=== PATIENT | male | born 1985 | race African-American/Black ===

== ENCOUNTER 2020-05-16 12:44 | Day surgery (SDCO) | payer OTHER ==
[2020-05-16 14:08] LABS: BASOPHIL 0.3 % (0-2); EOSINOPHIL 0.4 % (0-5); HCT 46.1 % (42.0-52.0); HGB 14.4 g/dl (13.2-18.0); MCH 25.3 pg (25.0-31.0); MCHC 31.2 g/dL (32.0-36.0); MONOCYTE 10.8 % (0-12); MPV 11.2 fL (6.0-9.5); NEUTROPHIL 78.4 % (41-80); NRBC 0; PLT 264 K/uL (150-400); RBC 5.69 M/uL (4.70-6.00); RDW 14.9 % (11.5-14.0); WBC 6.9 K/uL (4.0-10.5)
[2020-05-16 14:31] LABS: ALBUMIN 3.1 g/dL (3.4-5.0); BILIRUBIN - TOTAL 0.4 mg/dL (0.2-1.0); BUN/CREAT RATIO (CALC) 13.3 RATIO; CREATININE 3.45 mg/dL (0.67-1.17); GLOBULIN (CALCULATION) 5.1 g/dL; POTASSIUM 4.2 mmol/L (3.5-5.1); TOTAL PROTEIN 8.2 g/dL (6.4-8.2)
[2020-05-16 14:51] LABS: CORONAVIRUS 2019 SARS-COV-2 NEGATIVE (NEGATIVE); INFLUENZA A NAA NEGATIVE (NEGATIVE)
[2020-05-16] MEDS ORDERED: humalog (20:11)
[2020-05-16] MEDS ORDERED: CARVEDILOL6.25 MG PO (20:13)
[2020-05-16] MEDS ORDERED: NORVASC 10MG TA10 MG PO (20:13)
[2020-05-16] MEDS ORDERED: LASIX20 MG PO (20:15)
[2020-05-16] MEDS ORDERED: ATHLETIC FOOT C30 GM TOP (20:15)
[2020-05-16] MEDS ORDERED: COZAAR50 MG PO (20:15)
[2020-05-16] MEDS ORDERED: ONETOUCH ULTRA1 EAC2 (20:16)
[2020-05-16] MEDS ORDERED: [UNRECOGNIZED DRUG - OTHER] (20:17)
[2020-05-17 06:04] LABS: BASOPHIL 0.2 % (0-2); HCT 43.1 % (42.0-52.0); HGB 13.3 g/dl (13.2-18.0); LYMPHOCYTE 28.7 % (15-48); MCH 25.7 pg (25.0-31.0); MCHC 30.9 g/dL (32.0-36.0); MCV 83.2 fL (78.0-100.0); MONOCYTE 19.5 % (0-12); NEUTROPHIL 50.6 % (41-80); NRBC 0; PLT 255 K/uL (150-400); RBC 5.18 M/uL (4.70-6.00); WBC 4.2 K/uL (4.0-10.5)
[2020-05-17 06:24] LABS: ALBUMIN 2.8 g/dL (3.4-5.0); BILIRUBIN - TOTAL 0.4 mg/dL (0.2-1.0); BUN/CREAT RATIO (CALC) 15.3 RATIO; CREATININE 2.88 mg/dL (0.67-1.17); GLOBULIN (CALCULATION) 4.7 g/dL; TOTAL PROTEIN 7.5 g/dL (6.4-8.2)
--- NOTE | 2020-05-17 11:09 | NUR ---
PT IN OBS STATUS ; [employer] WILL PAY FOR 48 HOURS OF OBS TIME. IF NOT DC'D 05/18/20 PLEASE ASSESS FOR NEED FOR INPT STATUS.
[2020-05-18 05:51] LABS: BASOPHIL 0 % (0-2); EOSINOPHIL 2.2 % (0-5); HCT 37.9 % (42.0-52.0); HGB 11.8 g/dl (13.2-18.0); MCH 25.4 pg (25.0-31.0); MCHC 31.1 g/dL (32.0-36.0); MCV 81.7 fL (78.0-100.0); MONOCYTE 19.8 % (0-12); MPV 10.7 fL (6.0-9.5); NEUTROPHIL 27.3 % (41-80); NRBC 0; PLT 245 K/uL (150-400); RBC 4.64 M/uL (4.70-6.00); WBC 3.7 K/uL (4.0-10.5)
[2020-05-18 06:01] LABS: LYMPHOCYTE 50.7 % (15-48)
[2020-05-18 06:16] LABS: ALBUMIN 2.5 g/dL (3.4-5.0); BILIRUBIN - TOTAL 0.2 mg/dL (0.2-1.0); BUN/CREAT RATIO (CALC) 15.5 RATIO; CREATININE 1.93 mg/dL (0.67-1.17); GLOBULIN (CALCULATION) 4.1 g/dL; POTASSIUM 3.6 mmol/L (3.5-5.1); TOTAL PROTEIN 6.6 g/dL (6.4-8.2)
== END 2020-05-18 13:34 | disposition home or self-care (01) ==
LOC: FER 12:44 → FMS 16:36
PROVIDERS: Emergency Medicine; Nurse Practitioner; ADMIT Internal Medicine
DX: I13.0 Hypertensive heart and chronic kidney disease with heart failure and stage 1 through stage 4 chronic kidney disease, or unspecified chronic kidney disease (principal); E10.22 Type 1 diabetes mellitus with diabetic chronic kidney disease; N18.2 Chronic kidney disease, stage 2 (mild); I50.9 Heart failure, unspecified; E86.1 Hypovolemia; N17.9 Acute kidney failure, unspecified; K52.9 Noninfective gastroenteritis and colitis, unspecified; Z79.899 Other long term (current) drug therapy; Z91.013 Allergy to seafood; Z20.828 Contact with and (suspected) exposure to other viral communicable diseases
CPT/HCPCS: 36415; 80053; 83036; 83690; 85025; G0378; J1644; J7030; U0002